=== PATIENT | female | born 1970 | race Caucasian/White ===

== ENCOUNTER → 2024-01-10 01:00 | Outpatient (CLI) | payer MEDICAID, SELFPAY ==
--- NOTE | 2024-01-10 | DI.MRI_ITS ---
Exam(s) MR CERVICAL SPINE WO EXAM: MR CERVICAL SPINE WO CLINICAL HISTORY: Cervical radiculopathy TECHNIQUE: Multiplanar multisequence MRI of the cervical spine was performed without intravenous con trast. COMPARISON: No exams were available for comparison FINDINGS: CERVICOMEDULLARY JUNCTION: Intact with no evidence of cerebellar tonsillar ectopia. No obvious abnor mality of the odontoid process. No evidence of Chiari 1 malformation. CERVICAL SPINAL CORD: There is no abnormal signal in the cervical spinal cord and no evidence of foca l cord atrophy nor focal cord swelling. OSSEOUS:There are no cervical fractures evident. No significant osseous lesions in the cervical vert ebrae. There is straightening of the cervical curvature. INDIVIDUAL LEVELS: C2-3: No disc herniation nor central canal stenosis. No foraminal stenosis. No facet arthropathy. C3-4: This level exhibits moderate disc space narrowing. Posteriorly there is broad annular bulging and posterior osteophytic ridging. This mildly effaces the thecal sac but not the spinal cord at thi s level. AP dimension of the canal at this level is 9.5 mm. There are small bilateral Luschka joint -disc complexes.Facet joints appear unremarkable. There is mild bilateral foraminal stenosis at this level related to the Luschka joint osteophytes. C4-5: Mild-moderate disc space narrowing evident. There is annular bulging posteriorly, slightly mor e so right of center 5 and there are bilateral Luschka joint osteophyte-disc complexes. Central alley l dimensions are lower normal. AP diameter of the canal at this level is 10 mm and there is no promi nent effacement of the anterior thecal sac nor of the cord.The facet joints at this level appear unre markable. There is an element of foraminal stenosis on the right side due to the Luschka joint osteo phyte-disc complex. Mild narrowing of the exiting left neural foramen for similar reasons. C5-6: Chronic disc space narrowing noted at this level. Mild broad annular bulging which effaces the thecal sac but not the spinal cord. The AP measurement of the canal at this level is 9.5 mm. There are bilateral Luschka joint osteophytes at this level. The facet joints at this level appear unrema rkable. There is mild bilateral foraminal stenosis at this level which is related to the bilateral L uschka joint osteophytes. C6-7: Chronic disc space narrowing evident at this level. Posteriorly there is annular bulging and b ilateral Luschka joint osteophyte-disc complexes, larger on the left side. Central canal dimensions are lower normal. The AP measurement of the canal at this level is 10 mm. Facet joints appear unrem arkable. There is moderate foraminal stenosis on the left side at this level and mild foraminal sten osis on the right side. This is related to the Luschka joint osteophytes. C7-T1: No disc herniation nor central canal stenosis. No facet arthropathy.No foraminal stenosis. IMPRESSION: 1. There is multilevel chronic degenerative disc disease as described individually above. There is n o dominant disc herniation and no prominent central canal stenosis. Central canal dimensions are as described individually above. The main finding here is multilevel mild bilateral foraminal stenosis which is due to disc height loss and bilateral Luschka joint osteophyte-disc complexes at multiple le vels. 2. There is no significant facet arthropathy in the cervical spine. 3. No abnormal signal in the cervical spinal cord. No evidence of focal cord swelling nor focal cord atrophy. DATA REPOSITORY:
--- NOTE | 2024-01-10 15:25 | DI.RAD_ITS ---
Exam(s) XR ELBOW LT COMPLETE EXAM: XR ELBOW LT COMPLETE CLINICAL HISTORY: TRAUMA. TECHNIQUE: 2D digital imaging was performed. Three views. COMPARISON: No exams were available for comparison FINDINGS: BONES: There is deformity at the articular aspect of the radial head there is no joint effusion and t his is likely related to an old fracture. No bony destructive lesion is seen. JOINTS: The elbow is normally aligned. No joint effusion is seen. Mild degenerative changes. SOFT TISSUE: Normal. IMPRESSION: Deformity at the articular surface of the radial head appears to represent an old fracture. DATA REPOSITORY: RADIATION DOSE DELIVERED:
== END ==
PROVIDERS: PCP Internal Medicine; Visit Provider Internal Medicine
DX: M50.13 Cervical disc disorder with radiculopathy, cervicothoracic region (principal); M25.522 Pain in left elbow
CPT/HCPCS: 72141; 73080

== ENCOUNTER → 2024-01-14 02:36 | Outpatient (CLI) | payer MEDICAID, SELFPAY ==
--- NOTE | 2024-01-14 | DI.CT_ITS ---
Exam(s) CT CHEST/ABD/PEL W EXAM: CT CHEST/ABD/PEL W CLINICAL HISTORY: UTERINE CANCER, CERVICAL RADICULOPATHY. TECHNIQUE: Imaging Protocol: Axial computed tomography images with coronal and sagittal reformatted images were created and reviewed CONTRAST MATERIAL: Intravenous: Omnipaque 350 Contrast volume:100 ml Oral: yes / no COMPARISON: CT CT CHEST/ABD/PELVIS W/CONTRAST from 06/28/2022 FINDINGS: CHEST: Tracheobronchial tree: Patent. Pulmonary parenchyma: No consolidation or dominant measurable mass. No suspicious pulmonary nodules. Pleura: No effusion or pneumothorax. Lymph nodes: Within normal limits. Aorta: Thoracic portion non-dilated. Heart: Normal size. No pericardial effusion. Bones: Unremarkable for age. No lytic or blastic lesions.No compression fractures. Soft tissues: Unremarkable. ABDOMEN and PELVIS: Exam mildly limited by motion. Liver: Normal density. No measurable mass. Gallbladder and biliary tract: No evidence of stones or wall thickening. No biliary dilatation. Pancreas: Normal density, no abnormal calcifications or inflammatory process. Spleen: Normal. Kidneys: Normal size, contour and axis. No radiodense stones. No obstructive uropathy. No suspicious masses seen. Adrenal glands: No masses seen. Aorta: Abdominal portion non-dilated. Lymph nodes: Within normal limits. Soft tissues: Unremarkable. Bladder: Unremarkable. Bowel: No obstruction or bowel wall thickening. Sigmoid diverticulosis. Peritoneal cavity: No ascites. No focal collection. No mesenteric inflammatory response. Bones: Unremarkable for age. No lytic or blastic lesions Reproductive organs: Status post hysterectomy IMPRESSION: No evidence of metastatic disease in the chest, abdomen or pelvis.. RADIATION DOSE DELIVERED: 2,006.15mGy.cm Total DLP DATA REPOSITORY: All CT scans at this facility are submitted to the National Radiology Data Registry (NRDR) Dose Index Registry (DIR) with the [employer] ([employer]). RADIATION OPTIMIZATION: All CT scans at this facility use at least one of these dose optimization te chniques: automated exposure control; mA and/or kV adjustment per patient size (includes targeted exa ms where dose is matched to clinical indication); or iterative reconstruction.
--- NOTE | 2024-01-14 | DI.CT_ITS ---
Exam(s) CT HEAD WO EXAM: CT HEAD WO CLINICAL HISTORY: HEAD TRAUMA. TECHNIQUE: Imaging Protocol: Axial computed tomography images with coronal and sagittal reformatted images were created and reviewed COMPARISON: None FINDINGS: Ventricles and Extra axial spaces: Normal in size and morphology for the patient's age. Hemorrhage: None. Cerebral parenchyma: No evidence of acute infarct or mass. Midline shift: None. Brainstem/Cerebellum: Normal. Calvarium: Normal. Visualized Paranasal sinuses:Clear. Mastoids: Clear. Soft Tissues: Unremarkable. ORBITS: Unremarkable. PITUITARY: Not enlarged. IMPRESSION: No acute intracranial process. RADIATION DOSE DELIVERED: 676.67mGy.cm Total DLP DATA REPOSITORY: All CT scans at this facility are submitted to the National Radiology Data Registry (NRDR) Dose Index Registry (DIR) with the [employer] ([employer]). RADIATION OPTIMIZATION: All CT scans at this facility use at least one of these dose optimization te chniques: automated exposure control; mA and/or kV adjustment per patient size (includes targeted exa ms where dose is matched to clinical indication); or iterative reconstruction.
[2024-01-14] MEDS: Barium Sulfate 2% W/V-Berry Smoothie 450 ML BTL PO ×2 (12:30→12:31)
[2024-01-14] MEDS: Omnipaque 350 MG/ML 100 ML BTL IJ (15:06)
[2024-01-14] MEDS: Normal Saline - Diluent 50 ML VIAL IJ (15:07)
== END ==
PROVIDERS: PCP Internal Medicine; Visit Provider Internal Medicine
DX: M50.13 Cervical disc disorder with radiculopathy, cervicothoracic region (principal); C55 Malignant neoplasm of uterus, part unspecified; S09.90XA Unspecified injury of head, initial encounter; X58.XXXA Exposure to other specified factors, initial encounter
CPT/HCPCS: 74177; 70450; 71260; J3490

== ENCOUNTER → 2024-04-06 00:57 | Outpatient (CLI) | payer MEDICAID, SELFPAY ==
--- NOTE | 2024-04-06 | DI.MAMMO_ITS ---
Exam(s) MAMMO SCREENING EXAM: MAMMO SCREENING CLINICAL HISTORY: SCREENING TECHNIQUE: Mammograms were interpreted according to the usual protocol including computer analysis w [employer] CAD system, tomosynthesis and C-view imaging. COMPARISON: [address] [facility] FINDINGS: The breasts are composed of heterogeneously dense fibroglandular densities, Breast Density category C . No suspicious masses or suspicious microcalcifications are seen. No skin thickening or abnormal axillary lymph nodes are seen. There has been no significant change from prior exams. IMPRESSION: BI-RADS Category 1, Negative mammogram. Yearly screening mammography is recommended. Breast Density Category C, heterogeneously Dense. The mammogram demonstrates the patient's breast tissue is dense. Dense breast tissue is very common a nd is not abnormal but dense breast tissue can make it harder to find cancer on a mammogram. Also, de nse breast tissue may increase breast cancer risk. This information about the result of the mammogram report was provided to the patient to raise their awareness. Use this report when you speak with the patient about their risks for breast cancer, which includes their family history. At that time, you may recommend additional screening tests (Ultrasound or MRI) as they might be useful based on their r isk. A negative radiographic report should not delay biopsy if a dominant or clinically suspicious mass is present. Up to ten percent of cancers are not identified on mammography. A negative report may reinforce clinical impression. Adenosis and dense breasts may obscure an underlying neoplasm. False positive reports average 6 to 10%.
== END ==
PROVIDERS: PCP Internal Medicine; Visit Provider Internal Medicine
DX: Z12.31 Encounter for screening mammogram for malignant neoplasm of breast (principal)
CPT/HCPCS: 77063; 77067

== ENCOUNTER 2024-05-18 12:08 | Outpatient (CLI) | payer MEDICAID, SELFPAY ==
--- NOTE | 2024-05-18 | DI.RAD_ITS ---
Exam(s) XR SHOULDER LT COMPLETE 2+V EXAM: XR SHOULDER LT COMPLETE 2+V CLINICAL HISTORY: Trauma. TECHNIQUE: 2D digital imaging was performed. Five views. COMPARISON: No exams were available for comparison FINDINGS: BONES: No acute fracture is present. No bony destructive lesion is seen. JOINTS: No dislocation present. No significant degenerative changes. SOFT TISSUE: Rounded calcification of of the greater tuberosity consistent with calcific tendinosis. IMPRESSION: Calcific tendinosis. DATA REPOSITORY: RADIATION DOSE DELIVERED:
--- NOTE | 2024-05-18 14:58 | DI.RAD_ITS ---
Exam(s) XR KNEE RT 3V AP,LAT,WALDO EXAM: XR KNEE RT 3V AP,LAT,WALDO CLINICAL HISTORY: Trauma. TECHNIQUE: 2D digital imaging was performed. Three views. COMPARISON: No exams were available for comparison FINDINGS: BONES: No acute fracture is present. No bony destructive lesion is seen. JOINTS: The knee is normally aligned. No joint effusion is seen. SOFT TISSUE: Normal. IMPRESSION: Unremarkable radiographs of the right knee. DATA REPOSITORY: RADIATION DOSE DELIVERED:
--- NOTE | 2024-05-18 14:59 | DI.RAD_ITS ---
Exam(s) XR FACIAL BONES COMPLETE EXAM: XR FACIAL BONES COMPLETE CLINICAL HISTORY: Trauma. TECHNIQUE: 2D digital imaging was performed. Four views. COMPARISON: No exams were available for comparison FINDINGS: BONES: No evidence of fracture. Sinuses appear grossly clear. SOFT TISSUES: Unremarkable. IMPRESSION: Unremarkable radiographs of the facial bones. DATA REPOSITORY: RADIATION DOSE DELIVERED:
== END 2024-05-18 12:28 ==
LOC: DI 12:08
PROVIDERS: PCP Internal Medicine; Visit Provider Internal Medicine
DX: M75.32 Calcific tendinitis of left shoulder (principal); S09.90XA Unspecified injury of head, initial encounter; S80.912A Unspecified superficial injury of left knee, initial encounter; X58.XXXA Exposure to other specified factors, initial encounter
CPT/HCPCS: 73562; 70150; 73030

== ENCOUNTER 2024-06-18 01:04 | Outpatient (CLI) | payer MEDICAID, SELFPAY ==
--- NOTE | 2024-06-18 15:57 | DI.CT_ITS ---
Exam(s) CT HEAD SINUS WO EXAM: CT HEAD SINUS WO CLINICAL HISTORY: TRAUMA. TECHNIQUE: Imaging Protocol: Axial computed tomography images with coronal and sagittal reformatted images were created and reviewed COMPARISON: CT CT HEAD WO from 01/14/2024 CR XR FACIAL BONES COMPLETE from 05/18/2024 FINDINGS: CT Head: Ventricles and Extra axial spaces: Normal in size and morphology for the patient's age. Hemorrhage: None. Cerebral parenchyma: Normal. Midline shift: None. Brainstem/Cerebellum: Normal. Calvarium: Normal. Visualized Paranasal sinuses/Mastoids: Clear. Soft Tissues: Unremarkable. CT Sinuses: Facial Bones: No fracture is noted in facial bones. Sinuses: Clear throughout. Mastoids: Unremarkable. Globes, extraocular muscles, optic nerves and retrobulbar fat: Normal. Upper aerodigestive tract: Normal. Mandible and bilateral temporomandibular joints: Normal. Soft tissues: Normal. IMPRESSION: 1. No acute intracranial process. 2. No acute facial fracture. No evidence of sinus disease. RADIATION DOSE DELIVERED: Total DLP DATA REPOSITORY: All CT scans at this facility are submitted to the National Radiology Data Registry (NRDR) Dose Index Registry (DIR) with the [employer] ([employer]). RADIATION OPTIMIZATION: All CT scans at this facility use at least one of these dose optimization te chniques: automated exposure control; mA and/or kV adjustment per patient size (includes targeted exa ms where dose is matched to clinical indication); or iterative reconstruction.
== END 2024-06-18 01:24 ==
LOC: DI 01:04
PROVIDERS: PCP Internal Medicine; Visit Provider Internal Medicine
DX: S09.90XD Unspecified injury of head, subsequent encounter (principal); X58.XXXD Exposure to other specified factors, subsequent encounter
CPT/HCPCS: 70450; 70486

== ENCOUNTER 2024-06-30 00:56 | Outpatient (CLI) | payer MEDICAID, SELFPAY ==
--- NOTE | 2024-06-30 15:04 | DI.RAD_ITS ---
Exam(s) XR FOOT LT COMPLETE EXAM: XR FOOT LT COMPLETE CLINICAL HISTORY: Left foot pain,m79.672. TECHNIQUE: 2D digital imaging was performed of the left foot. Three images were obtained. AP, obli que and lateral views were obtained. COMPARISON: No priors for comparison. FINDINGS: BONES: No acute fracture is present. No bony destructive lesion is seen. JOINTS: No dislocation present. There is a hallux valgus deformity. [id number]-[id number] degenerative ch anges are seen at the 1st MTP joint characterized by joint space narrowing and osteophytes. SOFT TISSUE: Normal. IMPRESSION: Hallux valgus deformity and degenerative changes of the 1st MTP joint. DATA REPOSITORY: RADIATION DOSE DELIVERED:
--- NOTE | 2024-06-30 15:04 | DI.RAD_ITS ---
Exam(s) XR FOOT RT COMPLETE EXAM: XR FOOT RT COMPLETE CLINICAL HISTORY: Right foot pain,m79.671. TECHNIQUE: 2D digital imaging was performed of the right foot. Three images were obtained. AP, obl ique and lateral views were obtained. COMPARISON: No exams were available for comparison FINDINGS: BONES: No acute fracture is present. No bony destructive lesion is seen. JOINTS: No dislocation present. There is a hallux valgus deformity. There are mild degenerative srinivasan ges seen at the 1st metatarsophalangeal joint characterized by joint space narrowing. SOFT TISSUE: Normal. IMPRESSION: Hallux valgus deformity. Mild degenerative changes seen at the 1st MTP joint. DATA REPOSITORY: RADIATION DOSE DELIVERED:
== END 2024-06-30 01:16 ==
LOC: DI 00:56
PROVIDERS: PCP Internal Medicine; Visit Provider Podiatrist
DX: M20.11 Hallux valgus (acquired), right foot (principal); M20.12 Hallux valgus (acquired), left foot
CPT/HCPCS: 73630